=== PATIENT | female | born 1965 | race Caucasian/White ===

== ENCOUNTER 2017-06-13 08:59 | Emergency (ER) | payer BC ==
[2017-06-13] MEDS ORDERED: Morphine 10 MG/ML VIAL ONE (09:25)
[2017-06-13] MEDS ORDERED: Ondansetron HCl/PF 4 MG/2 ML Vial ONE (09:26)
[2017-06-13] MEDS ORDERED: Cephalexin 250 MG CAP ONE (09:26)
[2017-06-13] MEDS ORDERED: Ketorolac Tromethamine 60 MG/2 ML VIAL ONE (09:26)
[2017-06-13] MEDS ORDERED: Triple Antibiotic Oint 1 GM Packet ONE (10:58)
--- NOTE | 2017-06-13 11:32 | RAD ---
LEFT FOREARM ONE VIEW: History: 51-year-old female with left forearm pain and injury following a fall. FINDINGS: This is a limited examination. The arm had been placed in a splint prior to imaging. There are comminuted fractures of the distal radius and ulna metadiaphysis region with marked radial displacement with angulation and foreshortening and severe resultant deformity and soft tissue swel ling. Proximal radius and ulna appear intact as viewed on this limited view. IMPRESSION: Limited single view study demonstrates comminuted distal radial and ulnar metadiaphyseal fractures w ith marked radial angulation and foreshortening and severe resultant deformity. POS: R[facility]NA
[2017-06-13] MEDS ORDERED: Sodium Chloride Irrig Solution 250 ML BOT ONE (14:21)
== END 2017-06-13 11:32 | disposition short-term general hospital (02) ==
LOC: MADERS 08:59
DX: S52.502A Unspecified fracture of the lower end of left radius, initial encounter for closed fracture (principal); S52.602A Unspecified fracture of lower end of left ulna, initial encounter for closed fracture; I10 Essential (primary) hypertension; F32.9 Major depressive disorder, single episode, unspecified; I25.10 Atherosclerotic heart disease of native coronary artery without angina pectoris; Z79.899 Other long term (current) drug therapy; W17.89XA Other fall from one level to another, initial encounter
CPT/HCPCS: 96374; 96375; 96376; G0390; J1885; J2270; J2405